=== PATIENT | male | born 1980 | race Hispanic/Latino ===

== ENCOUNTER 2016-08-15 16:50 | Emergency (ER) | payer SELFPAY ==
[~2016-08-15] VITALS: Ht 165.1 cm; Wt 63.5 kg
[2016-08-15 16:50] VITALS: BP 128/83
--- NOTE | 2016-08-15 17:12 | Emergency Room Report ---
History of Present Illness General Chief Complaint: Altered Mental Status Source: Patient, EMS Present Illness HPI 36 YO M BIBEMS found down on street. C/o left knee pain. Patient endorses falling yesterday. Denies ETOH today (multiple previous admissions for ETOH and falls). VSS. Afebrile here. 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[facility] [place] Past Medical History: No Stated History Review of Systems All Other Systems: negative except mentioned in HPI Physical Exam Vital Signs Date Time Temp Pulse Resp B/P Pulse Ox O2 Delivery O2 Flow Rate FiO2 08/15/16 16:44 98.4 72 08/15/16 16:44 16 128/83 99 Room Air Sp02 EP Interpretation: reviewed, normal General Appearance: normal inspection, well appearing, no apparent distress, alert, GCS 15, non-toxic, other - Uninary incontinence Head: normocephalic, atraumatic Eyes: bilateral eye EOMI, bilateral eye PERRL ENT: normal ENT inspection, hearing grossly normal, normal voice Neck: normal inspection, full range of motion, supple, no bony tend Respiratory: normal inspection, lungs clear, normal breath sounds, no rhonchi, no respiratory distress, no retraction, no accessory muscle use, no wheezing Cardiovascular #1: regular rate, rhythm, no edema Gastrointestinal: normal inspection, normal bowel sounds, non tender, soft, no guarding, no hernia Genitourinary: no CVA tenderness Musculoskeletal: normal inspection, back normal, normal range of motion, Rox' s Sign negative, other - left lateral prox tib fib with significant tpp. Multiple areas of chronic bruising to left lower extremity. ROM intact at left knee and ankle Neurologic: normal inspection, alert, oriented x3, responsive, animal technician III-XII nml as tested, motor strength/tone normal, speech normal, other - Non tremulous Psychiatric: normal inspection, judgement/insight normal, mood/affect normal Skin: normal inspection, normal color, no rash Medical Decision Making Diagnostic Impression: Primary Impression: Left leg pain ER Course xrays of tib fib negative Patient tolerating PO, ambulating with steady gait No other acute issues in ED Not withdrawing from ETOH VS stable serially Other X-Ray Diagnostic Results Other X-Ray Diagnostic Results : X-Ray Ordered: right tib fib EP Interpretation: Yes Findings: no fractures, no dislocation, no soft tissue swelling Number of Views: 2 Last Vital Signs Date Time Temp Pulse Resp B/P Pulse Ox O2 Delivery O2 Flow Rate FiO2 08/15/16 16:50 98.4 79 16 128/83 99 Room Air Status: improved Disposition: HOME, SELF-CARE EAN PALMA M.D. Aug 15, 2016 17:12
[2016-08-15 18:31] VITALS: BP 132/86
--- NOTE | 2016-08-16 10:58 | Diagnostic Imaging Report ---
Indications: Right leg pain Technique: 2 views right leg. Findings: Comparison: None Chronic appearing contour deformity distal aspect right fibula. Overlying soft tissues mildly swollen. No acute fracture, dislocation, joint space widening, lytic destruction, periosteal reaction , additional soft tissue swelling/foreign body/gas, or other acute changes are identified. No additional chronic changes are demonstrated. IMPRESSION: Old, healed distal fibular fracture Lateral pre-malleolar soft tissue swelling may represent acute ligamentous injury, if in the setting of acute trauma. Correlate clinically.
== END 2016-08-15 18:33 | disposition home or self-care (01) ==
LOC: EDBD 16:50 → EMR 17:59
DX: M79.605 Pain in left leg (principal)
CPT/HCPCS: 99283